=== PATIENT | female | born 1945 | race Caucasian/White ===

== ENCOUNTER → 2017-12-09 | Outpatient (CLI) | payer MEDICARE, OTHER ==
--- NOTE | 2017-12-09 11:29 | RAD ---
EXAM DESCRIPTION: Shoulder,Right 2 or More Views CLINICAL HISTORY: 72 years Female, PAIN IN RIGHT SHOULDER COMPARISON: None available. FINDINGS: The visualized bones are well-mineralized.No acute fracture or dislocation. The soft tissues appear grossly unremarkable. Mild degenerative changes are identified in the glenohumeral joint. IMPRESSION: Mild glenohumeral joint osteoarthritis. Electronically signed by: Nicole Turpin MD 12/09/2017 11:28 AM CDT
== END ==
LOC: RAD 07:59
PROVIDERS: ATTEND Orthopaedic Surgery
DX: M25.511 Pain in right shoulder (principal); M19.011 Primary osteoarthritis, right shoulder

== ENCOUNTER → 2018-09-12 | Outpatient (CLI) | payer MEDICARE, OTHER ==
--- NOTE | 2018-09-12 16:13 | RAD ---
EXAM DESCRIPTION: Wrist,Right 3 Views CLINICAL HISTORY: S52.501D COMPARISON: 08 September 2018 TECHNIQUE: 3 views right FINDINGS: An impacted fracture of the distal radius is observed. Mild degenerative changes are observed in the metacarpal carpal articulation of the first digit. There is a prior avulsive injury ulnar styloid process. IMPRESSION: An impacted fracture of the distal radius is observed with alignment unchanged from the previous exam. A prior avulsive injury of the ulnar styloid process is observed. Electronically signed by: Kavon Jackson MD 09/12/2018 4:11 PM CDT
== END ==
LOC: RAD 09:27
PROVIDERS: ATTEND Orthopaedic Surgery
DX: S52.501D Unspecified fracture of the lower end of right radius, subsequent encounter for closed fracture with routine healing (principal)

== ENCOUNTER → 2018-12-12 | Outpatient (CLI) | payer MEDICARE, OTHER ==
--- NOTE | 2018-12-12 11:11 | RAD ---
PROVIDED CLINICAL HISTORY/REASON FOR EXAM: closed fx of distal end of radius Findings: Number of images: Three Location: Right wrist Comparison September 29, 2018. Healing comminuted intra-articular fracture of the distal right radius fracture. Redemonstrated ulnar-sided with avulsion fracture. Osteopenia. Stable degenerative changes. Stable alignment. Improved soft tissue swelling. No new fracture identified. IMPRESSION: Healing comminuted intra-articular distal right radius fracture. Electronically signed by: Wilber Augustine MD 12/12/2018 11:09 AM CDT
== END ==
LOC: RAD 09:18
PROVIDERS: ATTEND Orthopaedic Surgery
DX: S52.501D Unspecified fracture of the lower end of right radius, subsequent encounter for closed fracture with routine healing (principal)